=== PATIENT | female | born 1960 | race African-American/Black ===

== ENCOUNTER 2020-03-26 14:30 | Emergency (ER) | payer OTHER ==
[2020-03-26 14:41] VITALS: BP 136/68; PULSE 78; TEMP 99.1; BMI 28.1
[2020-03-26] MEDS ORDERED: IBUPROFEN 600 MG TABLET (FP) PO ONE ×2 (16:36→16:51)
== END 2020-03-26 17:10 | disposition home or self-care (01) ==
LOC: FER 14:30
DX: S82.892A Other fracture of left lower leg, initial encounter for closed fracture (principal)
CPT/HCPCS: 73610-TC-LT-FY; 73630-TC-LT; 93971-TC; 99284-25

== ENCOUNTER 2020-04-07 09:37 | Day surgery (SDC) | payer OTHER ==
[2020-03-31 12:02] VITALS: BMI 28.1
[2020-04-07] MEDS ORDERED: BUPIVACAINE HCL 50 ML ONE (10:06)
[2020-04-07] MEDS ORDERED: MIDAZOLAM HCL 2 MG/2 ML SINGLE DOSE VIAL ONE ×2 (10:06→10:09)
[2020-04-07] MEDS ORDERED: PROPOFOL 20 ML ONE (10:42)
[2020-04-07] MEDS ORDERED: ceFAZolin SODIUM 1 GM VIAL ONE (11:12)
[2020-04-07] MEDS ORDERED: TRANEXAMIC ACID 1000 MG/10 ML VIAL ONE (11:23)
[2020-04-07] MEDS ORDERED: ONDANSETRON 4 MG/2 ML VIAL ONE (12:35)
[2020-04-07] MEDS ORDERED: KETOROLAC TROMETHAMINE 30 MG/1 ML VIAL ONE (12:35)
[2020-04-07] MEDS ORDERED: ONDANSETRON 4 MG/2 ML VIAL IVPUSH PRN (13:05)
[2020-04-07] MEDS ORDERED: oxyCODONE HCL 5 MG TABLET PO PRN (13:05)
[2020-04-07] MEDS ORDERED: ACETAMINOPHEN 325 MG TABLET (FP) PO PRN (13:05)
[2020-04-07] MEDS ORDERED: LACTATED RINGERS SOLUTION 1,000 ML IV SCH (13:15)
[2020-04-07] MEDS ORDERED: ONDANSETRON 4 MG/2 ML VIAL IVPUSH ONE (13:59)
[2020-04-07 14:30] VITALS: PULSE 80
[2020-04-07] MEDS ORDERED: oxyCODONE HCL 5 MG TABLET ONE (14:42)
[2020-04-07] MEDS ORDERED: oxyCODONE HCL 5 MG TABLET PO ONE (14:45)
[2020-04-07 16:07] VITALS: TEMP 98.6
[2020-04-07 16:16] VITALS: BP 138/81
== END 2020-04-07 16:15 | disposition home or self-care (01) ==
LOC: FASU 09:37
PROVIDERS: ATTEND Orthopaedic Surgery Sports Medicine
PROC: 0QSK04Z Reposition Left Fibula with Internal Fixation Device, Open Approach (ICD-10-PCS; principal; 2020-04-07 11:24)
DX: S82.832A Other fracture of upper and lower end of left fibula, initial encounter for closed fracture (principal); S93.432A Sprain of tibiofibular ligament of left ankle, initial encounter; Y93.9 Activity, unspecified; Y92.9 Unspecified place or not applicable; Y99.8 Other external cause status
CPT/HCPCS: 27792; C1713; 73610-TC-LT-FY; 76000-TC-FY; 94760